=== PATIENT | male | born 1960 | race Caucasian/White ===

== ENCOUNTER 2018-11-07 11:57 | Day surgery (SDC) | payer BC ==
[~2018-11-07] VITALS: Ht 188 cm; Wt 89.4 kg
[2018-11-07] MEDS ORDERED: CLINDAMYCIN 900 mg/50mL D5W 50 ML IV ONE (13:15)
[2018-11-07] MEDS ORDERED: BUPIVACAINE /EPINEPHRINE/PF 0.25% 30 ML VIAL INJ ONE (14:20)
[2018-11-07] MEDS ORDERED: MIDAZOLAM HCL 5 MG/5 ML VIAL IVP ONE (14:20)
[2018-11-07] MEDS ORDERED: SEVOFLURANE 15 MIN GAS INH ONE (14:20)
[2018-11-07] MEDS ORDERED: DEXAMETHASONE SOD PHOSPHATE 4 MG/ML VIAL IVP ONE (14:20)
[2018-11-07] MEDS ORDERED: ROCURONIUM BROMIDE 10 MG/ML (ZEMURON) IV ONE (14:20)
[2018-11-07] MEDS ORDERED: LR 1,000 ML IV.SOLN IV ONE (14:20)
[2018-11-07] MEDS ORDERED: NS IRRIG SOLN 1000 ML IR ONE (14:20)
[2018-11-07] MEDS ORDERED: ONDANSETRON HCL 4 MG/2 ML VIAL IVP ONE (14:20)
[2018-11-07] MEDS ORDERED: KETOROLAC TROMETHAMINE 30 MG VIAL IVP ONE (14:20)
[2018-11-07] MEDS ORDERED: PROPOFOL 200MG/ 20ML VIAL (DIPRIVAN) IV ONE (14:20)
[2018-11-07] MEDS ORDERED: fentaNYL CITRATE 250 MCG/5 ML AMP IV ONE (14:20)
[2018-11-07] MEDS ORDERED: POLYMYXIN 500,000/BACIT.10,000 UNITS in NS IRR 1 L IR ONE (14:55)
[2018-11-07] MEDS ORDERED: LR 1,000 ML IV SCH (15:40)
[2018-11-07] MEDS ORDERED: MEPERIDINE HCL/PF 25 MG/ML DISP.SYRIN IVP PRN (15:45)
[2018-11-07] MEDS ORDERED: HYDROmorphone 2 MG/ML VIAL IVP PRN ×2 (15:45)
[2018-11-07] MEDS ORDERED: HYDROmorphone 1 MG INJ. 1 MG/ML AMPUL IVP PRN ×2 (15:45→17:46)
[2018-11-07] MEDS ORDERED: HYDROcodone/ACETAMIN 5-325 MG TAB (NORCO/ VICODIN) ONE (17:22)
[2018-11-07] MEDS ORDERED: ONDANSETRON HCL 4 MG/2 ML VIAL IVP PRN (17:46)
[2018-11-07] MEDS ORDERED: HYDROcodone/ACETAMIN 5-325 MG TAB (NORCO/ VICODIN) PO PRN (17:46)
[2018-11-07 17:47] VITALS: BP_SYST 102
== END 2018-11-07 18:50 | disposition home or self-care (01) ==
LOC: SDS 11:57 → SMU 11:59 → SDS 18:50
PROVIDERS: ATTEND Surgery
DX: K40.30 Unilateral inguinal hernia, with obstruction, without gangrene, not specified as recurrent (principal); Z98.890 Other specified postprocedural states; Z79.899 Other long term (current) drug therapy; E78.5 Hyperlipidemia, unspecified
CPT/HCPCS: 49650; C1727; C1781; J3490; J1100; J1885; J2250; J2405; J2704; J3010; J7120